=== PATIENT | male | born 1940 | race Caucasian/White ===

== ENCOUNTER 2024-04-14 08:27 | Emergency (ER) | payer MEDICARE ==
[~2024-04-14] VITALS: Ht 182.9 cm; Wt 79.4 kg
[2024-04-14 09:52] LABS: BASOPHILS ABSOLUTE AUTO 0.03 K/mm3 (0.00-0.23); BASOPHILS PERCENT AUTO 0 % (0-2); EOSINOPHILS ABSOLUTE AUTO 0.01 K/mm3 (0.00-0.68); EOSINOPHILS PERCENT AUTO 0 % (0-6); Hematocrit 45.6 % (37.0-53.0); Hemoglobin 15.8 g/dL (13.5-17.5); IMMATURE GRAN ABSOLUTE AUTO 0.02 K/mm3 (0.00-0.10); IMMATURE GRAN PERCENT AUTO 0 % (0-1); LYMPHOCYTES ABSOLUTE AUTO 0.59 K/mm3 (0.84-5.20); LYMPHOCYTES PERCENT AUTO 5 % (21-46); MONOCYTES ABSOLUTE AUTO 1.03 K/mm3 (0.16-1.47); MONOCYTES PERCENT AUTO 9 % (4-13); Mean Corpuscular HGB 32.9 pg (26.0-34.0); Mean Corpuscular HGB Conc 34.6 g/dL (31.5-36.5); Mean Corpuscular Volume 95 fL (80-100); Mean Platelet Volume 9.5 fL (9.1-12.4); NEUTROPHILS ABSOLUTE AUTO 9.52 K/mm3 (1.96-9.15); NEUTROPHILS PERCENT AUTO 85 % (41-73); Platelet Count 202 K/mm3 (150-400); RDW Coefficient Variation 13.7 % (11.7-14.2); RDW Standard Deviation 48.2 fL (35.1-46.3)
[2024-04-14 10:33] LABS: Albumin, Blood 3.6 g/dL (3.4-5.0); Bilirubin, Total 1.1 mg/dL (0.1-1.0); Bun/Creatinine Ratio 22.5 (12.0-20.0); Creatinine, Blood 0.84 mg/dL (0.60-1.20); Globulin, Blood 3.5 g/dL (2.2-4.0); Potassium, Blood 3.7 mmol/L (3.5-5.5); Total Protein, Blood 7.1 g/dL (6.4-8.2)
[2024-04-14] MEDS ORDERED: NS 1,000 ML IV SCH (11:40)
== END 2024-04-14 13:02 | disposition home or self-care (01) ==
LOC: ER 08:27
PROVIDERS: Emergency Medicine
DX: U07.1 COVID-19 (principal); Z88.5 Allergy status to narcotic agent
CPT/HCPCS: 71045; 80053; 83880; 85025; 93005; 93010; 99285-25; J7030

== ENCOUNTER 2024-06-09 22:54 | Inpatient (IN) | payer MEDICARE ==
[~2024-06-09] VITALS: Ht 182.9 cm; Wt 75.6 kg
[2024-06-10 02:08] LABS: Source, Urine Clean Catch
[2024-06-10 02:15] LABS: Bilirubin, Urine Neg (Neg); Blood, Urine 1+ (Neg); Glucose Qualitative, Urine Neg (Neg); Ketones, Urine Neg (Neg); Leukocyte Esterase, Urine Neg (Neg); Nitrite, Urine Neg (Neg); Protein, Urine Neg (Neg); Urobilinogen, Urine 1+ (Normal)
[2024-06-10 02:22] LABS: Appearance, Urine Clear (Clear); Color, Urine Yellow (P-Yellow)
[2024-06-10 02:27] LABS: Bacteria Not Seen /hpf; Red Blood Cells, Urine 0-2 /hpf (0-2); Squamous Epithelial Cells Rare /hpf (Few); White Blood Cells, Urine Not Seen /hpf (0-5)
[2024-06-10 02:46] LABS: Albumin, Blood 4.2 g/dL (3.4-5.0); Bilirubin, Total 0.8 mg/dL (0.1-1.0); Calcium, Blood 10.3 mg/dL (8.5-10.1); Creatinine, Blood 0.91 mg/dL (0.60-1.20); Potassium, Blood 3.8 mmol/L (3.5-5.5); Total Protein, Blood 8.2 g/dL (6.4-8.2)
[2024-06-10 02:47] LABS: BASOPHILS ABSOLUTE AUTO 0.04 K/mm3 (0.00-0.23); BASOPHILS PERCENT AUTO 0 % (0-2); EOSINOPHILS ABSOLUTE AUTO 0.17 K/mm3 (0.00-0.68); EOSINOPHILS PERCENT AUTO 2 % (0-6); Hematocrit 46.4 % (37.0-53.0); IMMATURE GRAN ABSOLUTE AUTO 0.02 K/mm3 (0.00-0.10); IMMATURE GRAN PERCENT AUTO 0 % (0-1); LYMPHOCYTES ABSOLUTE AUTO 1.23 K/mm3 (0.84-5.20); LYMPHOCYTES PERCENT AUTO 12 % (21-46); MONOCYTES ABSOLUTE AUTO 0.96 K/mm3 (0.16-1.47); MONOCYTES PERCENT AUTO 10 % (4-13); Mean Corpuscular HGB 31.9 pg (26.0-34.0); Mean Corpuscular HGB Conc 34.5 g/dL (31.5-36.5); Mean Corpuscular Volume 93 fL (80-100); Mean Platelet Volume 8.3 fL (9.1-12.4); NEUTROPHILS ABSOLUTE AUTO 7.73 K/mm3 (1.96-9.15); NEUTROPHILS PERCENT AUTO 76 % (41-73); Platelet Count 254 K/mm3 (150-400); RDW Standard Deviation 47.7 fL (35.1-46.3); Red Blood Cell Count 5.01 M/mm3 (4.30-5.90); White Blood Cell Count 10.15 K/mm3 (4.00-11.30)
[2024-06-10] MEDS ORDERED: Ondansetron HCl 2 MG / ML 2ML Vial IV ONE (04:05)
[2024-06-10] MEDS ORDERED: NS 1,000 ML IV SCH (04:05)
[2024-06-10] MEDS ORDERED: Ketorolac Tromethamine 30mg Vial IV ONE (04:05)
[2024-06-10] MEDS ORDERED: EZETIMIBE10 M6 PO (04:08)
[2024-06-10] MEDS ORDERED: OMEP20ER PO (04:08)
[2024-06-10] MEDS ORDERED: REMERON1510 PO (04:08)
[2024-06-10] MEDS ORDERED: FLU VACC TS2024-25(6MOS UP)/PF 45 MCG/0.5 ML SYRINGE IM ONE (05:45)
[2024-06-10] MEDS ORDERED: FentaNYL Citrate 50 MCG/ML 2 ML Injection IV PRN (05:45)
[2024-06-10] MEDS ORDERED: Ondansetron HCl 2 MG / ML 2ML Vial IV PRN ×2 (05:45→16:15)
[2024-06-10] MEDS ORDERED: NS 1,000 ML IV ONE (05:45)
[2024-06-10] MEDS ORDERED: HYDCHL25 PO (07:11)
[2024-06-10] MEDS ORDERED: ATORVASTATIN CA20 MG PO (07:12)
[2024-06-10] MEDS ORDERED: EUTHYROX100 MC1 PO (07:12)
[2024-06-10 10:03] VITALS: BP 121/89
[2024-06-10 15:03] VITALS: BP 93/78
[2024-06-10] MEDS ORDERED: Pantoprazole Sodium 40 MG Injection IV ONE (16:10)
[2024-06-10] MEDS ORDERED: Lactated Ringer's 1,000 ML IV ONE (19:00)
--- NOTE | 2024-06-10 19:27 | NUR ---
SHIFT SUMMARY ER ADMIT. MEDICATED FOR ABDOMINAL PAIN AND NAUSEA. MAINTAINING OXYGEN SATURATION ABOVE 94% ON ROOM AIR. SBA TO BR, USES URINAL INDEPENDENTLY AT BEDSIDE. BEGAN PROFUSE VOMITING OF DARK BROWN EMESIS THIS AFTERNOON. DR. SRIVASTAVA MADE AWARE. IMAGING ORDERED. NOT CONSIDERING NG PLACEMENT AT THIS TIME DUE TO PATIENT HX OF THROAT CANCER AND NARROW ESOPHAGUS. AT BEDSIDE FOR SURGICAL DISCUSSION WITH DR. SRIVASTAVA. PLEASANT AND COOPERATIVE WITH CARE.
[2024-06-10 19:48] VITALS: BP 117/67
[2024-06-10] MEDS ORDERED: Inderal 20 mg T20 MG PO (20:34)
[2024-06-10] MEDS ORDERED: AMLODIPINE BESYL5 MG PO (20:38)
[2024-06-10] MEDS ORDERED: Bupivacaine 0.5% HCl 5 MG/ML 30MLVIAL ONE (23:32)
[2024-06-10] MEDS ORDERED: propofoL 20 ML IV ONE (23:55)
[2024-06-10] MEDS ORDERED: FentaNYL Citrate 50 MCG/ML 2 ML Injection ONE (23:56)
[2024-06-10] MEDS ORDERED: SuccINYLCHOLINE Chloride 100 MG/5 ML 5MLSYR ONE (23:59)
[2024-06-11] VITALS (15 sets, daily range): BP systolic 93–148; BP diastolic 62–100
[2024-06-11] MEDS ORDERED: CeFAZolin Sodium 1000 mg Vial ONE (00:19)
[2024-06-11] MEDS ORDERED: Albumin (Human) 12.5gm/250ml 500 ML IV ONE (00:23)
--- NOTE | 2024-06-11 00:42 | NUR ---
06/11/24 0042 Tabby Fink CRNA ADMINISTERED 2GM ANCEF IV TO PATIENT IN OR AT 0005.
[2024-06-11] MEDS ORDERED: Ondansetron HCl 2 MG / ML 2ML Vial ONE (01:10)
[2024-06-11] MEDS ORDERED: Phenylephrine HCl 10mg/ml 1 ml Vial ONE (01:10)
[2024-06-11] MEDS ORDERED: Sugammadex Sodium 200 MG/2ML SDV (100 MG/ML) ONE (01:10)
[2024-06-11] MEDS ORDERED: Dexamethasone Sod Phos 10 MG/ML 1ML VIAL ONE (01:10)
[2024-06-11] MEDS ORDERED: Acetaminophen 160MG / 5ML 10.15 UDC PO PRN (01:20)
[2024-06-11] MEDS ORDERED: HYDROcodone 7.5MG-APAP 325MG /15ML UDC PO PRN (01:25)
[2024-06-11 05:23] LABS: BASOPHILS ABSOLUTE AUTO 0.02 K/mm3 (0.00-0.23); BASOPHILS PERCENT AUTO 0 % (0-2); Hematocrit 34.2 % (37.0-53.0); Hemoglobin 11.5 g/dL (13.5-17.5); LYMPHOCYTES ABSOLUTE AUTO 0.46 K/mm3 (0.84-5.20); LYMPHOCYTES PERCENT AUTO 5 % (21-46); MONOCYTES ABSOLUTE AUTO 0.41 K/mm3 (0.16-1.47); MONOCYTES PERCENT AUTO 4 % (4-13); Mean Corpuscular HGB 32.3 pg (26.0-34.0); Mean Corpuscular HGB Conc 33.6 g/dL (31.5-36.5); Mean Corpuscular Volume 96 fL (80-100); Mean Platelet Volume 9.5 fL (9.1-12.4); Platelet Count 190 K/mm3 (150-400); RDW Coefficient Variation 14.4 % (11.7-14.2); RDW Standard Deviation 50.6 fL (35.1-46.3); Red Blood Cell Count 3.56 M/mm3 (4.30-5.90); White Blood Cell Count 9.57 K/mm3 (4.00-11.30)
[2024-06-11 05:24] LABS: EOSINOPHILS PERCENT AUTO 0 % (0-6); IMMATURE GRAN ABSOLUTE AUTO 0.01 K/mm3 (0.00-0.10); IMMATURE GRAN PERCENT AUTO 0 % (0-1); NEUTROPHILS ABSOLUTE AUTO 8.67 K/mm3 (1.96-9.15); NEUTROPHILS PERCENT AUTO 91 % (41-73)
[2024-06-11] MEDS ORDERED: Pantoprazole Sodium 40 MG Injection IV SCH (06:00)
[2024-06-11 06:39] LABS: Albumin/Globulin Ratio 1.2 (0.8-1.8); Bilirubin, Total 0.9 mg/dL (0.1-1.0); Bun/Creatinine Ratio 31.8 (12.0-20.0); Calcium, Blood 8.1 mg/dL (8.5-10.1); Creatinine, Blood 0.94 mg/dL (0.60-1.20); Globulin, Blood 2.5 g/dL (2.2-4.0); Potassium, Blood 3.5 mmol/L (3.5-5.5); Total Protein, Blood 5.5 g/dL (6.4-8.2)
--- NOTE | 2024-06-11 07:16 | NUR ---
NOC SHIFT SUMMARY PT WAS MISERABLE BEFORE GOING TO SURGERY. EXTREME PAIN WITH N/V. POST-OP HE FEELS COMPLETELY BETTER. NO PAIN. NO NAUSEA. NO VOMITING. ABLE TO DRINK FLUIDS WITHOUT ISSUE. HE IS VERY HAPPY. UPDATED VIA PHONE.
[2024-06-11] MEDS ORDERED: Levothyroxine Sodium 0.1 MG Tab PO SCH (09:00)
--- NOTE | 2024-06-11 17:48 | NUR ---
SHIFT SUMMARY PT A&OX4, AMB W/ SBA, TOLERATING PO, VOIDING URINE, AND DENIED PAIN. BP SOFT AND THEN HYPOTENSIVE X1, PT ASYMPTOMATIC. LAP SITES X4 WNL. PT HAS NOT HAD A BM YET, BUT DENIES FEELING CONSTIPATED. BOWEL TONES HEARD IN ALL 4 QUADRANTS. NO OTHER ACUTE CHANGES. CALL LIGHT WITHIN REACH AND PT ABLE TO MAKE NEEDS KNOWN.
[2024-06-11] MEDS ORDERED: DiphenhydrAMINE HCL 25 MG Cap PO ONE (23:00)
[2024-06-11] MEDS ORDERED: Acetaminophen 325 MG TABLET PO PRN (23:10)
[2024-06-12] VITALS (8 sets, daily range): BP systolic 77–148; BP diastolic 56–99
[2024-06-12] MEDS ORDERED: NS 500 ML IV ONE (00:40)
--- NOTE | 2024-06-12 00:42 | NUR ---
POST OP VS TAKEN @ 0012. PT HYPOTENSIVE, BUT ASYMPTOMATIC. BP TAKEN X 3. 77/58, 80/56, 85/61. HOSPITALIST NOTIFIED AN DORDER FOR BOLUS NS 500 ML X 1, AND 1L NS @ 75 ML/HR X 1 GIVEN.
[2024-06-12] MEDS ORDERED: NS 1,000 ML IV SCH (00:45)
--- NOTE | 2024-06-12 06:01 | NUR ---
SHIFT SUMMARY NOC PT A/O X 4. PLEASANT AND COOPERATIVE WITH CARE. BP STILL SOFT GIVN BOLUS NS 500 ML X 1, BP IMPROVED TO 115/70, AND HAS NS INFUSING @ 75 ML/HR X 1 BAG. PT IS POST OP DAY 2 FOR SBO AND HAS 4 LAPROSCOPIC INCISION SITES IN ABD SEALED WITH TISSUE ADHESIVE. PT HAD C/O OF NOT BEING ABLE TO SLEEP AND ONE TIME DOSE PO 25 MG BENADRYL GIVEN. PT ALSO ON TELE SINUS RHYTHM/1DHB IN 80'S-90'S. PT HAS HAD MINIMAL C/O PAIN AT INCISION SITES AND RECEIVED DOSE OF TYLENOL. PT ON REGULAR DIET NOW AND TOLERATING PO INTAKE WELL, BUT STATES OF HAVING POOR APPETITE. PT POSSIBLE DISCHARGE HOME TODAY. PT CURRENTLY RESTING WITH BED IN LOWEST POSITION, AND CALL LIGHT WITHIN REACH.
[2024-06-12 08:43] LABS: BASOPHILS ABSOLUTE AUTO 0.02 K/mm3 (0.00-0.23); BASOPHILS PERCENT AUTO 0 % (0-2); EOSINOPHILS ABSOLUTE AUTO 0.11 K/mm3 (0.00-0.68); EOSINOPHILS PERCENT AUTO 1 % (0-6); Hematocrit 35.6 % (37.0-53.0); Hemoglobin 12.2 g/dL (13.5-17.5); IMMATURE GRAN ABSOLUTE AUTO 0.02 K/mm3 (0.00-0.10); IMMATURE GRAN PERCENT AUTO 0 % (0-1); LYMPHOCYTES ABSOLUTE AUTO 0.84 K/mm3 (0.84-5.20); LYMPHOCYTES PERCENT AUTO 8 % (21-46); MONOCYTES ABSOLUTE AUTO 0.72 K/mm3 (0.16-1.47); MONOCYTES PERCENT AUTO 7 % (4-13); Mean Corpuscular HGB 32.6 pg (26.0-34.0); Mean Corpuscular HGB Conc 34.3 g/dL (31.5-36.5); Mean Corpuscular Volume 95 fL (80-100); Mean Platelet Volume 9.3 fL (9.1-12.4); NEUTROPHILS ABSOLUTE AUTO 8.71 K/mm3 (1.96-9.15); NEUTROPHILS PERCENT AUTO 84 % (41-73); Platelet Count 186 K/mm3 (150-400); RDW Coefficient Variation 14.6 % (11.7-14.2); RDW Standard Deviation 50.9 fL (35.1-46.3); Red Blood Cell Count 3.74 M/mm3 (4.30-5.90); White Blood Cell Count 10.42 K/mm3 (4.00-11.30)
--- NOTE | 2024-06-12 09:00 | NUR ---
pt laying in bed awake a/ox4, pleasant and cooperative with care, follows commands well, denies pain, states he feels ready to go home, lungs are clear t/o, resp even and unlabored, no cough noted, hrr, no edema noted, ppp+1, cap refill <3 sec, vs stable, afebrile, piv to rwrist, site is clear and patent, bt x4, abd flat soft nontender, voids via urinal skin c/w/d, except surgical lap sites to abd, no signs of infection, laverne flynn, call light in reach.
[2024-06-12 09:16] LABS: Bun/Creatinine Ratio 25.6 (12.0-20.0); Calcium, Blood 8.6 mg/dL (8.5-10.1); Creatinine, Blood 0.7 mg/dL (0.60-1.20); Potassium, Blood 3.4 mmol/L (3.5-5.5)
--- NOTE | 2024-06-12 18:49 | NUR ---
pt ambulated around the hospital this afternoon using a walker, did well, sat up in a chair after, came to see him, no acute changes this shift, call light in reach.
[2024-06-12] MEDS ORDERED: Polyethylene Glycol 3350 17 gm PO SCH (19:00)
[2024-06-13 03:12] VITALS: BP 143/89
[2024-06-13 05:03] LABS: BASOPHILS ABSOLUTE AUTO 0.02 K/mm3 (0.00-0.23); BASOPHILS PERCENT AUTO 0 % (0-2); EOSINOPHILS PERCENT AUTO 3 % (0-6); Hematocrit 36.1 % (37.0-53.0); Hemoglobin 12.2 g/dL (13.5-17.5); IMMATURE GRAN ABSOLUTE AUTO 0.02 K/mm3 (0.00-0.10); IMMATURE GRAN PERCENT AUTO 0 % (0-1); LYMPHOCYTES ABSOLUTE AUTO 0.48 K/mm3 (0.84-5.20); LYMPHOCYTES PERCENT AUTO 6 % (21-46); MONOCYTES PERCENT AUTO 8 % (4-13); Mean Corpuscular HGB 32.4 pg (26.0-34.0); Mean Corpuscular HGB Conc 33.8 g/dL (31.5-36.5); Mean Corpuscular Volume 96 fL (80-100); Mean Platelet Volume 9.6 fL (9.1-12.4); NEUTROPHILS ABSOLUTE AUTO 6.53 K/mm3 (1.96-9.15); NEUTROPHILS PERCENT AUTO 83 % (41-73); Platelet Count 189 K/mm3 (150-400); RDW Coefficient Variation 14.1 % (11.7-14.2); Red Blood Cell Count 3.77 M/mm3 (4.30-5.90); White Blood Cell Count 7.85 K/mm3 (4.00-11.30)
[2024-06-13 05:34] LABS: Magnesium, Blood 1.7 mg/dL (1.6-2.4)
[2024-06-13 05:38] LABS: Albumin, Blood 2.9 g/dL (3.4-5.0); Albumin/Globulin Ratio 0.9 (0.8-1.8); Bilirubin, Total 0.7 mg/dL (0.1-1.0); Bun/Creatinine Ratio 17.8 (12.0-20.0); Calcium, Blood 8.3 mg/dL (8.5-10.1); Creatinine, Blood 0.68 mg/dL (0.60-1.20); Globulin, Blood 3.1 g/dL (2.2-4.0); Potassium, Blood 3.4 mmol/L (3.5-5.5)
--- NOTE | 2024-06-13 06:51 | NUR ---
SHIFT SUMMARY NOC PT A/O X 4. PLEASANT AND COOPERATIVE WITH CARE. BP STABLE. NO ACUTE EVENTS TO REPORT. PT RECEIVED DOSE OF MIRALAX AT END OF DAY SHIFT, AND STILL HAS NOT HAD A BM. PT WAS OFFERED PRUNE JUICE WITH BUTTER TO HELP WITH BM, BUT RESPECTFULLY DECLINED. ON TELE SINUS RHYTHM/PVC'S IN 90'S. PT EXPECTED TO DISCHARGE TODAY PENDING IMPROVED GI FUNCTION. PT CURRENTLY RESTING WITH BED IN LOWEST POSITION, AND CALL LIGHT WITHIN REACH.
[2024-06-13 07:15] VITALS: BP 132/90
[2024-06-13] MEDS ORDERED: Propranolol HCL 20 MG TAB PO SCH (09:00)
[2024-06-13] MEDS ORDERED: Potassium Chloride 20 MEQ TabCR PO SCH (09:00)
[2024-06-13] MEDS ORDERED: Bisacodyl 10 MG Supp PR ONE (11:00)
[2024-06-13] MEDS ORDERED: Docusate Sodium/Senna 1 Tab PO SCH (12:25)
[2024-06-13] MEDS ORDERED: POTCHL20ER PO (14:52)
[2024-06-13] MEDS ORDERED: MIRALAX17 GM PO (14:52)
[2024-06-13] MEDS ORDERED: Norco 10-325 T1 EACH PO (14:55)
[2024-06-13 15:26] VITALS: BP 149/111
--- NOTE | 2024-06-13 16:59 | NUR ---
PT AWAKE DURING SHIFT REPORT. PLEASANT AND CO-OP WITH CARE. ADMITTED FOR SBO, STILL NO BM AT START OF SHIFT. BOWEL CARE GIVEN PER EMAR WITH AM MEDS. DR WHITLEY THEN IN TO SEE PT; NEW ORDERS PLACED. ADDITIONAL BOWEL CARE GIVEN WITH SOME SUCCESS. PT LATER HAD ADDITIONAL BM THIS AFTERNOON. PT'S HERE TO SEE PT AND THEN ABLE TO D/C TO HOME. D/C ORDERS PLACED. MEDS FAXED TO [facility], PER PT REQUEST. PT ABLE TO DRESS HIMSELF. ASSISTED OUT TO 'S CARE VIA W/C WITH ALL BELONGINGS.
[2024-06-13] MEDS ORDERED: AmLODIPine Besylate 5 MG Tab PO SCH (21:00)
== END 2024-06-13 16:54 | disposition home or self-care (01) | DRG 337 ==
LOC: ER 22:54 → MEDS 06-10 05:40 → ERHOLD 06-10 05:40 → MEDS 06-10 09:53
PROVIDERS: Emergency Medicine; Internal Medicine; Surgery; ADMIT Internal Medicine
PROC: 0DNU4ZZ Release Omentum, Percutaneous Endoscopic Approach (ICD-10-PCS; principal; 2024-06-11)
PROC: 0DN84ZZ Release Small Intestine, Percutaneous Endoscopic Approach (ICD-10-PCS; 2024-06-11)
PROC: 8E0W4CZ Robotic Assisted Procedure of Trunk Region, Percutaneous Endoscopic Approach (ICD-10-PCS; 2024-06-11)
DX: K56.50 Intestinal adhesions [bands], unspecified as to partial versus complete obstruction (principal); E78.5 Hyperlipidemia, unspecified; E03.9 Hypothyroidism, unspecified; K21.9 Gastro-esophageal reflux disease without esophagitis; Z28.21 Immunization not carried out because of patient refusal; Z85.818 Personal history of malignant neoplasm of other sites of lip, oral cavity, and pharynx; Z85.118 Personal history of other malignant neoplasm of bronchus and lung; Z88.6 Allergy status to analgesic agent; Z85.828 Personal history of other malignant neoplasm of skin; Z90.49 Acquired absence of other specified parts of digestive tract; Z90.2 Acquired absence of lung [part of]; Z98.890 Other specified postprocedural states; Z79.890 Hormone replacement therapy; Z79.899 Other long term (current) drug therapy
CPT/HCPCS: 36415; 74019; 74022; 74177; 80048; 80053; 81001; 83605; 83690; 83735; 83880; 85025; 93005; 93010; 96361; 96374-59; 96375; 99285-25; A9270; J0330; J0690; J1100; J1885; J2371; J2405; J2470; J2704; J3010; J7030; J7040; J7120; P9045; Q9967

== ENCOUNTER 2025-05-19 10:19 | Day surgery (SDC) | payer MEDICARE ==
[~2025-05-19] VITALS: Ht 182.9 cm; Wt 80.5 kg
[~2025-05-19 10:19] MED LIST: AMLODIPINE BESYL5 MG PO; ASPI81CH PO; ATORVASTATIN CA20 MG PO; Balanced Salt Epinephrine Irrigation Solution 500 mL IR SCH; EUTHYROX100 MC1 PO; EZETIMIBE10 M6 PO; HYDCHL25 PO; Inderal 20 mg T20 MG PO; MIRALAX17 GM PO; Moxifloxacin HCL 0.5 MG/0.1 ML 0.4MLSYR LEFTEYE SCH; Norco 10-325 T1 EACH PO; OMEP20ER PO; PHENYLEPHRINE\\TROPICAMIDE\\TETRACAINE OPHTHALMIC DILATING SOLN LEFTEYE PRN; POTCHL20ER PO; Povidone-Iodine 450 DROP/30 ML Solution LEFTEYE SCH; Povidone-Iodine 450 DROP/30 ML Solution ONE; REMERON1510 PO; Tetracaine HCl/Pf 0.5% Opth Soln 4 ml ONE
[2025-05-19] MEDS ORDERED: NS 500 ML IV ONE (11:25)
[2025-05-19] MEDS ORDERED: Midazolam HCl 1MG / ML 2ML Vial ONE (11:29)
== END 2025-05-19 12:08 | disposition home or self-care (01) ==
LOC: ORSCSDS 10:19
PROVIDERS: Student in an Organized Health Care Education/Training Program
PROC: 08RK3JZ Replacement of Left Lens with Synthetic Substitute, Percutaneous Approach (ICD-10-PCS; principal; 2025-05-19 12:00)
DX: H25.812 Combined forms of age-related cataract, left eye (principal); H52.202 Unspecified astigmatism, left eye; Z96.1 Presence of intraocular lens; I10 Essential (primary) hypertension; E07.9 Disorder of thyroid, unspecified; Z79.899 Other long term (current) drug therapy
CPT/HCPCS: J2250; J7040; V2632